=== PATIENT | female | born 1965 | race Caucasian/White ===

== ENCOUNTER 2020-05-01 07:26 | Outpatient (CLI) | payer OTHER, SELFPAY ==
--- NOTE | ~2020-05-01 | MM_ITS ---
EXAMINATION: MM screening [facility] w [facility] HISTORY: Screening TECHNIQUE: Craniocaudal and mediolateral oblique 3-D tomosynthesis images were obtained and synthetic 2-D images were generated. CAD analysis was submitted and interpreted. COMPARISON: Comparison to multiple prior studies sequentially, with oldest reviewed study dated 10/12. BREAST PARENCHYMAL COMPOSITION: There are scattered areas of fibroglandular density. FINDINGS: There is no evidence of suspicious mass, calcification, or architectural distortion to sugg est malignancy in either breast. There has been no suspicious interval change. IMPRESSION: 1. No mammographic evidence of malignancy. 2. Recommend routine screening mammography in one year. BI-RADS Category 1: Negative Reviewed, dictated and finalized at location A.
== END 2020-05-01 07:27 | disposition home or self-care (01) ==
PROVIDERS: PCP Family Medicine; Visit Provider Obstetrics & Gynecology
DX: Z12.31 Encounter for screening mammogram for malignant neoplasm of breast (principal)
CPT/HCPCS: 77063; 77067

== ENCOUNTER → 2021-05-22 15:05 | Outpatient (CLI) | payer OTHER, SELFPAY ==
--- NOTE | ~2021-05-22 | MM_ITS ---
EXAMINATION: MM screening [facility] BI w avinash HISTORY: Screening mammogram TECHNIQUE: Craniocaudal and mediolateral oblique 3-D tomosynthesis images were obtained and synthetic 2-D images were generated. CAD analysis was submitted and interpreted. COMPARISON: 05/01/2020, 12/28/2018, 12/16/2018 BREAST PARENCHYMAL COMPOSITION: There are scattered areas of fibroglandular density. FINDINGS: There is no evidence of suspicious mass, calcification, or architectural distortion to sugg est malignancy in either breast. There has been no suspicious interval change. IMPRESSION: 1. No mammographic evidence of malignancy. 2. Recommend routine screening mammography in one year. BI-RADS Category 1: Negative Reviewed, dictated and finalized at location A.
== END ==
PROVIDERS: Visit Provider Obstetrics & Gynecology
DX: Z12.31 Encounter for screening mammogram for malignant neoplasm of breast (principal)
CPT/HCPCS: 77063; 77067

== ENCOUNTER → 2021-07-13 13:24 | Outpatient (CLI) | payer OTHER, SELFPAY ==
--- NOTE | ~2021-07-13 | DEXA_ITS ---
Bone Density Report Name: Leanna Orozco Age: 55 Sex: Female Ethnicity: White Date of : 1965 Indication: osteopenia; postmenopausal Referring Provider: AIDEN PALOMO Study: Bone densitometry was performed. Exam Date: July 13, 2021 Accession number: [id number] Bone Density: Region BMD T-score Z-score Classification AP Spine (L1-L4) 0.897 -1.4 -0.2 Osteopenia Femoral Neck (Left) 0.718 -1.2 -0.1 Osteopenia Total Hip (Left) 0.983 0.3 1.1 Normal Femoral Neck (Right) 0.710 -1.2 -0.1 Osteopenia Total Hip (Right) 0.932 -0.1 0.7 Normal Total Hip Mean 0.958 0.1 0.9 Normal World Health Organization criteria for BMD impression classify patients as: Normal (T-score at or above -1.0), Osteopenia (T-score between -1.0 and -2.5), or Osteoporosis (T-score at or below -2.5). 10-year Fracture Risk(1): Major Osteoporotic Fracture 6.0% Hip Fracture 0.4% Reported Risk Factors: [place] (), Neck BMD=0.710, BMI=21.8 (1) FRAX(R) Version 3.08. Fracture probability calculated for an untreated patient. Fracture probability may be lower if the patient has received treatment. Previous Exams: Region Exam Age BMD T-score BMD Change BMD Change Date g/cm2 vs Baseline vs Previous AP Spine(L1-L4) 07/13/2021 55 0.897 -1.4 -0.087* -0.020 12/28/2018 53 0.917 -1.2 -0.067* -0.006 12/18/2016 51 0.923 -1.1 -0.061* -0.061* 09/21/2013 47 0.984 -0.6 Total Hip(Left) 07/13/2021 55 0.983 0.3 -0.045* 0.005 12/28/2018 53 0.978 0.3 -0.050* 0.026 12/18/2016 51 0.952 0.1 -0.076* -0.076* 09/21/2013 47 1.028 0.7 Total Hip(Right) 07/13/2021 55 0.932 -0.1 -0.024 0.012 12/28/2018 53 0.920 -0.2 -0.036* 0.025 12/18/2016 51 0.894 -0.4 -0.061* -0.061* 09/21/2013 47 0.956 0.1 *Denotes significance at 95% confidence level, LSC for AP Spine = 0.022 g/cm2, LSC for Total Hip = 0.027 g/cm2 Clinical Information Provided by Patient: Has used the following medications: Vitamin D, LEVOTHYROXINE, MTV Patient maximum height was 65.3 Menopause Age: 47 Drinks caffeinated beverages Onset of menses at age 16 Number of children 2 Impression: The patient has low bone mass, based on the Total Spine T-score. The patient has an estimated ten-year risk of hip fracture of 0
== END ==
PROVIDERS: PCP Family Medicine; Visit Provider Obstetrics & Gynecology
DX: Z13.820 Encounter for screening for osteoporosis (principal); M85.88 Other specified disorders of bone density and structure, other site; M85.852 Other specified disorders of bone density and structure, left thigh; M85.851 Other specified disorders of bone density and structure, right thigh
CPT/HCPCS: 77080

== ENCOUNTER → 2022-06-07 13:35 | Outpatient (CLI) | payer OTHER, SELFPAY ==
--- NOTE | ~2022-06-07 | MM_ITS ---
EXAMINATION: MM screening [facility] w avinash HISTORY: Screening mammogram TECHNIQUE: Craniocaudal and mediolateral oblique 3-D tomosynthesis images were obtained and synthetic 2-D images were generated. CAD analysis was submitted and interpreted. COMPARISON: 05/18/2021, 05/01/2020, 12/28/2018 bilateral screening mammogram examinations BREAST PARENCHYMAL COMPOSITION: There are scattered areas of fibroglandular density. FINDINGS: There is no evidence of suspicious mass, calcification, or architectural distortion to sugg est malignancy in either breast. There has been no suspicious interval change. IMPRESSION: 1. No mammographic evidence of malignancy. 2. Recommend routine screening mammography in one year. BI-RADS Category 1: Negative Reviewed, dictated and finalized at location A.
== END ==
PROVIDERS: PCP Family Medicine; Visit Provider Obstetrics & Gynecology Gynecology
DX: Z12.31 Encounter for screening mammogram for malignant neoplasm of breast (principal)
CPT/HCPCS: 77063; 77067

== ENCOUNTER 2023-01-27 10:58 | Day surgery (SDC) | payer OTHER, SELFPAY ==
[2023-01-09 14:30] VITALS: BMI 22.4
--- NOTE | 2023-01-22 21:23 | PM.HPGS ---
History of Present Illness History of Present Illness Consent: Risks, benefits, and alternatives have been discussed and questions answered. Patient agrees to proceed with procedure. Chief complaint: Constipation Narrative: Leanna Orozco is a 57 year old female with a change in bowel habits. Her last colonoscopy was 2016. Lately her stools have become hard and sometimes like little balls. She also has had abdominal bloating. He does not see blood in her stools. Review of Systems Review of Systems: All systems reviewed & are unremarkable except as noted in HPI and below PMFSH Past Medical History Medical History Chondromalacia patellae, left knee Elevated glucose Family history of premature coronary heart disease Leg length discrepancy Pain of left sacroiliac joint Screening for lipid disorders Tachycardia Tubal (~1988) Surgical History Surgical History History of hernia repair (~2009) Family History Family History Sibling Cerebrovascular accident Family history of diabetes mellitus in first degree relative Diabetes mellitus Father Arthritis Mother Osteopenia Social History Social History Smoking packs per day: 0.5 Smoking cigarettes per day: 10.0 Years smoked: 15 Smoking pack-years: 7.50 Smoking status: Former smoker Tobacco type: cigarettes Alcohol intake: current Substance use: never Substance use type: does not use Lack of Transportation: No Lack of Food: Never True Current Housing: I Have Housing Concerned About Future Housing: No Difficulty Paying Gas/Electric Bills: No Difficulty Paying for Meds: No Currently Unemployed: No Education: Bachelor's Degree Difficulty w/ Childcare or Family Care: No Living arrangements: with family Spiritual care concerns: No Meds Home Medications and Allergies Home Medications Medication Instructions Recorded Confirmed Type levothyroxine 75 mcg tablet 75 mcg PO DAILY 08/12/19 01/27/23 History ergocalciferol (vitamin D2) 1,250 1,250 mcg PO [id number] 01/09/23 01/27/23 History mcg (50,000 unit) capsule estradiol 0.01% (0.1 mg/gram) 1 g vaginal 2XW 01/09/23 01/27/23 History vaginal cream multivit with minerals-iron 18 1 tablet PO DAILY 01/09/23 01/27/23 History mg-folic ac 400 mcg-vit K 25 mcg tablet (Adults Multivitamin) ubidecarenone-omega 3-vit E 25 1 cap PO DAILY 01/09/23 01/27/23 History mg-150 (90-60) mg-200 unit capsule (Co O-[id number] E-Fish Oil) Allergies Allergy/AdvReac Type Severity Reaction Status Date / Time No Known Allergies Allergy Verified 01/27/23 11:44 Exam Const: General: alert Orientation/consciousness: patient oriented x3 Resp: Auscultation: clear to auscultation bilaterally Cardio: Rhythm: regular rhythm GI: GI Palp: Yes Soft to palpation and No Tenderness to palpation present (GI) Neuro: General: patient oriented x3 Assessment and Plan Assessment and plan (1) Constipation: Qualifiers: Constipation type: unspecified constipation type Qualified Code(s): K59.00 - Constipation, unspecified Code(s): K59.00 - Constipation, unspecified Status: Acute Assessment and Plan: Colonoscopy with possible biopsy or polypectomy or cautery or injection of substances.
[2023-01-27 11:40] VITALS: BP 123/86; PULSE 77; RESP 20; TEMP 36.7; O2SAT 100
[2023-01-27] MEDS: LACTATED RINGERS 1,000 ML 150 ML IV CONT (11:55)
--- NOTE | 2023-01-27 11:59 | WPDANESEPPF ---
Anes - Initial Pre Proc Eval Procedure: Operation Date: 01/27/23 13:00 Proposed Procedures p Diagnostic Colonoscopy - Eric Cornejo MD Date/Time: 01/27/23 11:59 Surgeon: Eric Cornejo MD Pre Op Diagnosis: Constipation Patient Data Age: 57 Gender: F Height: 1.65 m Weight: 58.7 kg Last Vital Signs Temp 36.7 C 01/27/23 11:40 Pulse 77 01/27/23 11:40 Resp 20 01/27/23 11:40 BP 123/86 01/27/23 11:40 Pulse Ox 100 01/27/23 11:40 O2 Del Method Room Air 01/27/23 11:40 Allergies Allergy/AdvReac Type Severity Reaction Status Date / Time No Known Allergies Allergy Verified 01/27/23 11:44 Home Medications Medication Instructions Recorded Confirmed Type levothyroxine 75 mcg tablet 75 mcg PO DAILY 08/12/19 01/27/23 History ergocalciferol (vitamin D2) 1,250 1,250 mcg PO [id number] 01/09/23 01/27/23 History mcg (50,000 unit) capsule estradiol 0.01% (0.1 mg/gram) 1 g vaginal 2XW 01/09/23 01/27/23 History vaginal cream multivit with minerals-iron 18 1 tablet PO DAILY 01/09/23 01/27/23 History mg-folic ac 400 mcg-vit K 25 mcg tablet (Adults Multivitamin) ubidecarenone-omega 3-vit E 25 1 cap PO DAILY 01/09/23 01/27/23 History mg-150 (90-60) mg-200 unit capsule (Co A-[id number] E-Fish Oil) Patient hx anesthesia problems: none Family hx anesthesia problems: none Results Review: All pre-operative results and documents have been reviewed as part of the pre-operative evaluation. [facility] Past Medical History Medical History Chondromalacia patellae, left knee Elevated glucose Family history of premature coronary heart disease Leg length discrepancy Pain of left sacroiliac joint Screening for lipid disorders Tachycardia Tubal (~1988) Surgical History Surgical History History of hernia repair (~2009) Family History Family History Sibling Cerebrovascular accident Family history of diabetes mellitus in first degree relative Diabetes mellitus Father Arthritis Mother Osteopenia Social History Social History Smoking packs per day: 0.5 Smoking cigarettes per day: 10.0 Years smoked: 15 Smoking pack-years: 7.50 Smoking status: Former smoker Tobacco type: cigarettes Alcohol intake: current Substance use: never Substance use type: does not use Lack of Transportation: No Lack of Food: Never True Current Housing: I Have Housing Concerned About Future Housing: No Difficulty Paying Gas/Electric Bills: No Difficulty Paying for Meds: No Currently Unemployed: No Education: Bachelor's Degree Difficulty w/ Childcare or Family Care: No Living arrangements: with family Spiritual care concerns: No Anes - Eval Final PreProcedure Day of Procedure 01/27/23 11:59 Patient weight: normal Heart: regular rate and rhythm Lungs: clear to auscultation Airway: Mallampati scale class II Neurological: alert and oriented Last oral intake: >/= 8 hours ASA classification: II Emergent: no Anesthetic plan: proceed Anesthesia type and monitoring: general GIVS and standard monitoring Results Review: All pre-operative results and documents have been reviewed as part of the pre-operative evaluation. Informed Consent: The patient's anesthetic plan and its attendant risks and benefits were discussed with the patient/family/POA. Questions were solicited and answers provided to the satisfaction of the patient/family/POA.
[2023-01-27 12:50] VITALS: BP 90/63; PULSE 74; RESP 16; O2SAT 100
[2023-01-27 13:00] VITALS: BP 118/73; PULSE 60; RESP 16; O2SAT 100
--- NOTE | 2023-01-27 13:04 | WPDANESPN ---
Anes - Prog Note Post-Op Date/Time: 01/27/23 13:04 Cardiovascular status: normal Respiratory status: normal Airway patency: baseline Mental status: baseline Post-Op hydration status: normal Vital Signs: Last Vital Signs Temp 36.7 C 01/27/23 11:40 Pulse 77 01/27/23 11:40 Resp 20 01/27/23 11:40 BP 123/86 01/27/23 11:40 Pulse Ox 100 01/27/23 11:40 O2 Del Method Room Air 01/27/23 11:40 Pain Score (VAS): 0 I/O: Intake & Output 01/26/23 01/27/23 01/27/23 23:59 07:59 15:59 Intake Total 300 Balance 300 Patient Feedback: Patient satisfied with anesthetic care.
[2023-01-27 13:10] VITALS: BP 104/76; PULSE 60; RESP 16; O2SAT 100
== END 2023-01-27 13:26 | disposition home or self-care (01) ==
PROVIDERS: PCP Family Medicine; Visit Provider Internal Medicine Gastroenterology
PROC: 0DJD8ZZ Inspection of Lower Intestinal Tract, Via Natural or Artificial Opening Endoscopic (ICD-10-PCS; CPT 45378; principal; 2023-01-27 13:00)
DX: R19.4 Change in bowel habit (principal)
CPT/HCPCS: 45378

== ENCOUNTER → 2023-08-07 14:12 | Outpatient (CLI) | payer OTHER, SELFPAY ==
--- NOTE | ~2023-08-07 | MM_ITS ---
EXAMINATION: MM screening [facility] w avinash HISTORY: Screening TECHNIQUE: Craniocaudal and mediolateral oblique 3-D tomosynthesis images were obtained and synthetic 2-D images were generated. CAD analysis was submitted and interpreted. COMPARISON: Comparison to multiple prior studies sequentially, with oldest reviewed study dated 12/18. BREAST PARENCHYMAL COMPOSITION: There are scattered areas of fibroglandular density. FINDINGS: There is no evidence of suspicious mass, calcification, or architectural distortion to sugg est malignancy in either breast. There has been no suspicious interval change. IMPRESSION: 1. No mammographic evidence of malignancy. 2. Recommend routine screening mammography in one year. BI-RADS Category 1: Negative Reviewed, dictated and finalized at location A. 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
== END ==
PROVIDERS: PCP Obstetrics & Gynecology Gynecology; Visit Provider Obstetrics & Gynecology Gynecology
DX: Z12.31 Encounter for screening mammogram for malignant neoplasm of breast (principal)
CPT/HCPCS: 77063; 77067

== ENCOUNTER → 2023-09-12 09:41 | Outpatient (CLI) | payer OTHER, SELFPAY ==
--- NOTE | ~2023-09-12 | DEXA_ITS ---
Bone Density Report Name: AGNES TRIPLETT Age: 57 Sex: Female Ethnicity: White Date of : 1965 Indication: osteopenia; postmenopausal Referring Provider: Les, Amy Study: Bone densitometry was performed. Exam Date: September 12, 2023 Accession number: [id number] Bone Density: Region BMD T-score Z-score Classification AP Spine (L1-L4) 0.907 -1.3 0.1 Osteopenia Femoral Neck (Left) 0.736 -1.0 0.2 Normal Total Hip (Left) 0.969 0.2 1.1 Normal Femoral Neck (Right) 0.701 -1.3 -0.1 Osteopenia Total Hip (Right) 0.904 -0.3 0.6 Normal Total Hip Mean 0.937 -0.1 0.9 Normal World Health Organization criteria for BMD impression classify patients as: Normal (T-score at or above -1.0), Osteopenia (T-score between -1.0 and -2.5), or Osteoporosis (T-score at or below -2.5). 10-year Fracture Risk(1): Major Osteoporotic Fracture 6.8% Hip Fracture 0.5% Reported Risk Factors: [place] (), Neck BMD=0.701, BMI=22.1 (1) FRAX(R) Version 3.08. Fracture probability calculated for an untreated patient. Fracture probability may be lower if the patient has received treatment. Previous Exams: Region Exam Age BMD T-score BMD Change BMD Change Date g/cm2 vs Baseline vs Previous AP Spine(L1-L4) 09/12/2023 57 0.907 -1.3 -0.077* 0.010 07/13/2021 55 0.897 -1.4 -0.087* -0.020 12/28/2018 53 0.917 -1.2 -0.067* -0.006 12/18/2016 51 0.923 -1.1 -0.061* -0.061* 09/21/2013 47 0.984 -0.6 Total Hip(Left) 09/12/2023 57 0.969 0.2 -0.059* -0.014 07/13/2021 55 0.983 0.3 -0.045* 0.005 12/28/2018 53 0.978 0.3 -0.050* 0.026 12/18/2016 51 0.952 0.1 -0.076* -0.076* 09/21/2013 47 1.028 0.7 Total Hip(Right) 09/12/2023 57 0.904 -0.3 -0.051* -0.027* 07/13/2021 55 0.932 -0.1 -0.024 0.012 12/28/2018 53 0.920 -0.2 -0.036* 0.025 12/18/2016 51 0.894 -0.4 -0.061* -0.061* 09/21/2013 47 0.956 0.1 *Denotes significance at 95% confidence level, LSC for AP Spine = 0.022 g/cm2, LSC for Total Hip = 0.027 g/cm2 Clinical Information Provided by Patient: Has used the following medications: Vitamin D, LEVOTHYROXINE, MTV Patient maximum height was 65.3 Menopause Age: 47 Drinks caffeinated beverages Onset of menses at age 16 Number of children 2 --------
== END ==
PROVIDERS: PCP Nurse Practitioner; Visit Provider Nurse Practitioner
DX: M85.89 Other specified disorders of bone density and structure, multiple sites (principal); Z13.820 Encounter for screening for osteoporosis
CPT/HCPCS: 77080

== ENCOUNTER 2023-12-10 08:02 | Outpatient (CLI) | payer OTHER, SELFPAY ==
[2023-12-10 19:38] LABS: Free T4 Free Thyroxine 1.36 ng/mL (0.78-2.19); Vitamin D 25 Hydroxy 66.2 ng/mL
== END 2023-12-10 08:03 | disposition home or self-care (01) ==
PROVIDERS: PCP Nurse Practitioner; Visit Provider Nurse Practitioner
DX: E03.9 Hypothyroidism, unspecified (principal); E55.9 Vitamin D deficiency, unspecified
CPT/HCPCS: 36415; 82306; 84439; 84443

== ENCOUNTER 2024-08-09 11:31 | Outpatient (CLI) | payer OTHER, SELFPAY ==
--- NOTE | ~2024-08-09 | MM_ITS ---
EXAMINATION: MM screening [facility] BI w avinash HISTORY: Screening mammogram TECHNIQUE: Craniocaudal and mediolateral oblique 3-D tomosynthesis images were obtained and synthetic 2-D images were generated. CAD analysis was submitted and interpreted. COMPARISON: 08/07/2023, 06/07/2022, 05/22/2021 BREAST PARENCHYMAL COMPOSITION:Dense: The breasts are heterogeneously dense, which may obscure small masses. FINDINGS: No suspicious mass, calcification, or architectural distortion are identified in either navjot ast to suggest malignancy. There has been no suspicious interval change. IMPRESSION: No mammographic evidence of malignancy. Recommend routine screening mammography in one year. BI-RADS Category 1: Negative Reviewed, dictated and finalized at location . 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
== END 2024-08-09 11:32 | disposition home or self-care (01) ==
PROVIDERS: PCP Family Medicine; Visit Provider Obstetrics & Gynecology Gynecology
DX: Z12.31 Encounter for screening mammogram for malignant neoplasm of breast (principal)
CPT/HCPCS: 77063; 77067

== ENCOUNTER 2025-05-26 11:08 | Outpatient (CLI) | payer OTHER, SELFPAY ==
--- NOTE | ~2025-05-26 | CT_ITS ---
EXAMINATION: CT diagnostic chest wo con DATE: 05/26/2025 11:26 INDICATION: Personal history of nicotine dependence TECHNIQUE: Computed tomography (CT) of the chest was performed without intravenous contrast. The dose-length product was 42.56 mGy-cm. COMPARISON: None FINDINGS: No enlarged mediastinal or hilar lymph nodes. Heart is not enlarged. Thoracic aorta is not aneurysmal. Tracheobronchial tree is patent. No pneumothorax. No pleural effusion. No focal pulmonary consolidation. No pulmonary mass. Mild biapical scarring. There is a 4 mm subpleural nodule in the anterolateral aspect of the right upper lobe. Mild multilevel degenerative change in the visualized spine. IMPRESSION: 1. Lung-RADS category 3: Probably benign. Further evaluation is recommended with noncontrast low-dose chest CT in 6 months. Reviewed, dictated and finalized at location Q. IMPRESSION: 1. Lung-RADS category 3: Probably benign. Further evaluation is recommended wit h noncontrast low-dose chest CT in 6 months.
== END 2025-05-26 11:09 | disposition home or self-care (01) ==
LOC: MICIMG 11:11
PROVIDERS: PCP Family Medicine; Visit Provider Physician Assistant Medical
DX: Z12.2 Encounter for screening for malignant neoplasm of respiratory organs (principal); Z87.891 Personal history of nicotine dependence; R91.8 Other nonspecific abnormal finding of lung field
CPT/HCPCS: 71250

== ENCOUNTER 2025-08-23 14:05 | Outpatient (CLI) | payer OTHER, SELFPAY ==
--- NOTE | ~2025-08-23 | MM_ITS ---
EXAMINATION: MM screening [facility] BI w avinash HISTORY: Screening TECHNIQUE: Craniocaudal and mediolateral oblique 3-D tomosynthesis images were obtained and synthetic 2-D images were generated. CAD analysis was submitted and interpreted. COMPARISON: Comparison to multiple prior studies sequentially, with oldest reviewed study dated 12/28/2018. BREAST PARENCHYMAL COMPOSITION: Not dense: There are scattered areas of fibroglandular density. FINDINGS: There is no evidence of suspicious mass, calcification, or architectural distortion to suggest malignancy in either breast. There has been no suspicious interval change. IMPRESSION: 1. No mammographic evidence of malignancy. 2. Recommend routine screening mammography in one year. BI-RADS Category 1: Negative Reviewed, dictated and finalized at location O. NER OPEN END
--- OUTSIDE RECORDS SUMMARY | 2025-08-23 16:00 | XMS_ITS | Clinical Summary ---
Author Organization [facility] Address [address] [place] [address] Care Team Providers Care Bench Loom Weaver Name Role Phone Kyrie Gillespie MD Primary Care Provider [phone] Source Comments [facility],non-owned Affiliates and Associated Physician Practices is amultiple site organization consisting of ambulatory clinics and hospital sitesin [place], [place], [place] and [place]. This disclosure is being madepursuant to the Care Everywhere program and may not contain all information available regarding this patient. Last updated 18.[facility] Allergies No known active allergies Medications * Be aware that medications may not be up to date on this document. Alwaysverify current medications with the patient. 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 SK vs. 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 Assessment & Plan (10/06/2020 4:28 PM LABOUR MARKET ECONOMIST): - Recommend OTC minoxidil daily if desired Family History Medical History Relation Name Comments None Known Brother None Known Father None Known Maternal Aunt None Known Maternal Grandfather None Known Maternal Grandmother None Known Maternal Uncle None Known Mother None Known Other None Known Paternal Aunt None Known Paternal Grandfather None Known Paternal Grandmother None Known Paternal Uncle None Known Sister Asthma Neg Hx CVA Neg Hx Cancer - Breast Neg Hx Cancer - Other Neg Hx Cancer - Skin, Melanoma Neg Hx Cancer - Skin, Non Melanoma Neg Hx Eczema Neg Hx Hemophilia Neg Hx Psoriasis Neg Hx Relation Name Status Comments Brother Father Maternal Aunt Maternal Grandfather Maternal Grandmother Maternal Uncle Mother Other Paternal Aunt Paternal Grandfather Paternal Grandmother Paternal Uncle Sister Social History Tobacco Use Types Packs/Day Years Used Date Smoking Tobacco: Former Cigarettes 0 Q uit: 1998 Smokeless Tobacco: Never Tobacco Cessation:Counseling Given: Not Answered Alcohol Use Standard Drinks/Week Comments Yes 0 (1 standard drink = 0.6 oz pur e alcohol) Comments Unknown Sex and Gender Information Value Date Recorded Sex Assigned at Not on file Legal Sex Female 11:34 AM LABOUR MARKET 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 Gender Identity Not on file Sexual Orientation Not on file Plan of Treatment Upcoming Encounters Date Type Department Care Team (Late st Contact Info) Description 12/30/2025 8:20 AM CDT Office Visit [facility] - Dermatology [address] [place] [address], [place] [address] Chyna Tee MD [address] [place] [address] [address] [place] [address] Health Maintenance Due Date Last Done Comments COLOGUARD (AGES 45-75) - COL ON CA SCREENING 1965 COLON MONITORING 1965 COLONOSCOPY - COLON CA SCREENING 1964 CT COLONOGRAPHY - COLON CA SCREENING 1965 Colorectal Cancer Screening 1965 FIT - COLON CA SCREENING 1965 FLEX SIG - COLON CA SCREENING 1965 LIPID TESTING 1965 MAMMOGRAM 1965 HIV SCREENING 1979 HEPATITIS C SCREENING 10/31/1982 DTAP/TDAP/TD VACCINES (1 - Tdap) 1983 Cervical Cancer Screening 1985 PAP SMEAR 1985 PAP with HPV 1994 PNEUMOCOCCAL VACCINE 50+ (1 of 1 - PCV) 2014 ZOSTER VACCINE (1 of 2) 2014 DEPRESSION SCREENING 09/29/2024 COVID-19 VACCINE (1 - 2024-2 6 season) 2025 INFLUENZA VACCINE (#1) 2025 Respiratory Syncytial Virus (RSV) Vaccine Pt: or over 60 yrs (1 - 1-dose 75+ series) 2039 HEPATITIS B VACCINE Aged Out No longe r eligible based on patient's age to complete this topic HIB VACCINE Aged Out No longer eligi ble based on patient's age to complete this topic HPV VACCINE Aged Out No longer eligi ble based on patient's age to complete this topic MENINGOCOCCAL (Group B) VACC INE SHARED DECISION-MAKING Aged Out No longer eligibl e based on patient's age to complete this topic MENINGOCOCCAL GROUPS A/C/Y/W VACCINE Aged Out No longer eligible b ased on patient's age to complete this topic Insurance [facility] Care Teams Bench Loom Weaver Relationship Specialty Start Date End Date Kyrie Gillespie MD [address] [place] [id number] PCP - General 06/01/21
== END 2025-08-23 14:06 | disposition home or self-care (01) ==
PROVIDERS: PCP Family Medicine; Visit Provider Obstetrics & Gynecology Gynecology
DX: Z12.31 Encounter for screening mammogram for malignant neoplasm of breast (principal)
CPT/HCPCS: 77063; 77067

== ENCOUNTER 2025-09-20 15:22 | Outpatient (CLI) | payer OTHER, SELFPAY ==
--- NOTE | ~2025-09-20 | DEXA_ITS ---
Bone Density Report Name: AGNES TRIPLETT Age: 59 Sex: Female Ethnicity: White Date of : 1965 Indication: osteopenia; Referring Provider: SHASHANK KEEN Study: Bone densitometry was performed. Exam Date: September 20, 2025 Accession number: [id number] Bone Density: Region BMD T-score Z-score Classification AP Spine(L1-L4) 0.874 -1.6 -0.1 Osteopenia Femoral Neck (Left) 0.704 -1.3 0.0 Osteopenia Total Hip (Left) 0.875 -0.6 0.4 Normal Femoral Neck (Right) 0.676 -1.6 -0.2 Osteopenia Total Hip (Right) 0.826 -0.9 0.0 Normal Total Hip Mean 0.850 -0.8 0.2 Normal World Health Organization criteria for BMD impression classify patients as: Normal (T-score at or above -1.0), Osteopenia (T-score between -1.0 and -2.5), or Osteoporosis (T-score at or below -2.5). 10-year Fracture Risk(1): Major Osteoporotic Fracture 7.7% Hip Fracture 0.7% Reported Risk Factors: [place] (), Neck BMD=0.676, BMI=22.0 (1) FRAX(R) Version 3.08. Fracture probability calculated for an untreated patient. Fracture probability may be lower if the patient has received treatment. Previous Exams: -- Region Exam Age BMD T-score BMD Change BMD Change Date g/cm2 vs Baseline vs Previous -- AP Spine (L1-L4) 09/20/2025 59 0.874 -1.6 -11.2%* -3.6%* 09/12/2023 57 0.907 -1.3 -7.9%* 1.1% 07/13/2021 55 0.897 -1.4 -8.8%* -2.1% 12/28/2018 53 0.917 -1.2 -6.8%* -0.7% 12/18/2016 51 0.923 -1.1 -6.2%* -6.2%* 09/21/2013 47 0.984 -0.6 Total Hip(Left) 09/20/2025 59 0.875 -0.6 -14.9%* -9.7%* 09/12/2023 57 0.969 0.2 -5.8%* -1.4% 07/13/2021 55 0.983 0.3 -4.4%* 0.5% 12/28/2018 53 0.978 0.3 -4.9%* 2.7% 12/18/2016 51 0.952 0.1 -7.4%* -7.4%* 09/21/2013 47 1.028 0.7 Total Hip(Right) 09/20/2025 59 0.826 -0.9 -13.5%* -8.6%* 09/12/2023 57 0.904 -0.3 -5.4%* -2.9%* 07/13/2021 55 0.932 -0.1 -2.5% 1.3% 12/28/2018 53 0.920 -0.2 -3.7%* 2.8% 12/18/2016 51 0.894 -0.4 -6.4%* -6.4%* 09/21/2013 47 0.956 0.1 -- *Denotes significance at 95% confidence level, LSC for AP Spine = 0.022 g/cm2, LSC for Total Hip = 0.027 g/cm2 Clinical Information Provided by Patient: Has used the following medications: Vitamin D Patient maximum height was 65 Menopause Age: 47 Drinks caffeinated beverages Onset of menses at age 16 Number of children 3 Impression: The patient has low bone mass, based on the Total Spine T-score. The patient has an estimated ten-year risk of hip fracture of 0.7% and an estimated ten-year risk of major fracture of 7.7%, based on the WHO FRAX algorithm. The BMD for the AP Spine (L1-L4) decreased, changing by -3.6% since the last DXA exam. The BMD for the Total Hip(Left) decreased, changing by -9.7% since the last DXA exam. The BMD for the Total Hip(Right) decreased, changing by -8.6% since the last DXA exam. Discussion: BONE DENSITY IS LOW AT ONE OR MORE SKELETAL SITES. This patient's lowest T-score is low at one or more skeletal sites. It meets the World Health Organization's (WHO) criteria for ?low bone mass? (T-score between -1.0 and -2.5). The patient's 10-year risk of fracture as calculated by FRAX is less than the threshold where pharmacological therapy is recommended by the National Osteoporosis Foundation (NOF). However, all treatment decisions require clinical judgment and consideration of individual patient factors, including patient preferences, comorbidities, previous drug use, risk factors not captured in the FRAX model (e.g., frailty, falls, vitamin D deficiency, increased bone turnover, interval significant decline in bone density) and possible under or overestimation of fracture risk by FRAX. The patient should follow a healthful lifestyle (good nutrition with adequate calcium and vitamin D, and appropriate weight-bearing exercise). Follow-Up: Consider repeating this study in 2 years to reassess this patient's status, or sooner if there is some new clinical indication. Reported by: SHARMILA on 09/20/2025 3:43:00 PM. Reviewed, dictated and finalized at location A.
== END 2025-09-20 15:23 | disposition home or self-care (01) ==
LOC: MICIMG 15:23
PROVIDERS: PCP Family Medicine; Visit Provider Obstetrics & Gynecology Gynecology
DX: M85.88 Other specified disorders of bone density and structure, other site (principal); Z78.0 Asymptomatic menopausal state; M85.89 Other specified disorders of bone density and structure, multiple sites
CPT/HCPCS: 77080